=== PATIENT | female | born 1960 | race Hispanic/Latino ===

== ENCOUNTER 2017-10-06 14:55 | Emergency (ER) | payer BC ==
[2017-10-06 15:09] VITALS: RESP 18; TEMP 98.5
[2017-10-06] MEDS ORDERED: Magnesium Sulfate 2 GM in Sodium Chloride 0.9% 100 ML IVPB ONE (15:15)
[2017-10-06 15:32] VITALS: BMI 33.9
[2017-10-06] MEDS: Albuterol-Ipratrop 3 mg / 0.5 (3 ml) UD IH SCH (16:04)
--- NOTE | 2017-10-06 16:05 | RAD ---
HISTORY: cough r/o infiltrate COMPARISON: No prior. FINDINGS: LUNGS: No active pulmonary disease. PLEURA: No significant pleural effusion identified, no pneumothorax apparent. CARDIOVASCULAR: Normal. OSSEOUS STRUCTURES: No significant abnormalities. VISUALIZED UPPER ABDOMEN: Normal. OTHER FINDINGS: None. IMPRESSION: No active disease.
[2017-10-06 16:09] LABS: BASO # 0.06 K/mm3 (0.0-2.0); BASO % 0.7 % (0.0-3.0); EOS # 0.8 (0.0-0.7); EOS % 8.4 % (1.5-5.0); GRAN # 4.78 (1.4-6.5); GRAN % 53.1 % (50.0-68.0); HEMATOCRIT 41.4 % (36.0-48.0); LYMPH # 2.7 (1.2-3.4); LYMPH % 30.4 % (22.0-35.0); MEAN CELL VOLUME 90.4 fl (80.0-105.0); MEAN CORPUSCULAR HGB CONC 34.3 g/dl (31.0-37.0); MONO # 0.7 (0.1-0.6); MONO % 7.4 % (1.0-6.0); RED CELL DISTRIBUTION WIDTH 13.8 % (11.5-14.5)
[2017-10-06 16:51] LABS: TROPONIN I < 0.01 ng/mL
[2017-10-06 16:52] LABS: ALB/GLOB RATIO 1.2 (1.1-1.8); ALKALINE PHOSPHATASE 88 U/L (38-126); ALT/SGPT 62 U/L (7-56); AST/SGOT 44 U/L (14-36); BILIRUBIN,TOTAL 0.6 mg/dL (0.2-1.3); BLOOD UREA NITROGEN 15 mg/dL (7-21); CALCIUM 9.4 mg/dL (8.4-10.5); CARBON DIOXIDE 25 mmol/L (21-33); CHLORIDE 107 mmol/L (98-107); GFR AFRICAN-AMERICAN > 60; GLUCOSE,RANDOM 82 mg/dL (70-110); POTASSIUM 3.7 mmol/L (3.6-5.0); SODIUM 141 mmol/L (132-148); TOTAL PROTEIN 7.5 g/dL (5.8-8.3)
--- NOTE | 2017-10-06 17:31 | ED PDOC ---
Arrival/HPI - General Chief Complaint: Shortness Of Breath Time Seen by Provider: 10/06/17 15:13 Historian: Patient - History of Present Illness Narrative History of Present Illness (Text): 10/06/17 17:31 A 56 year old female, with a past medical history of asthma, presents to emergency department complaining of shortness of breath for two days. Patient notes associated dry cough. She states her symptoms feel like her typical asthma exacerbation. Patient used nebulizer treatments at home, which provided mild relief of her symptoms. Patient denies any fever, chills, nausea, vomiting , diarrhea, abdominal pain, chest pain or any other complaints. Patient denies any recent travel. Time/Duration: Other (2 days) Symptom Course: Unchanged Quality: Other Context: Home Past Medical History - Provider Review Nursing Documentation Reviewed: Yes - Infectious Disease Hx of Infectious Diseases: None - Cardiac Hx Pacemaker: No - Pulmonary Hx Asthma: Yes - Neurological Hx Paralysis: No - Hematological/Oncological Hx Blood Transfusions: No - Musculoskeletal/Rheumatological Hx Musculoskeletal Disorders: No - Gastrointestinal Other/Comment: GASTRITIS - Psychiatric Hx Psychophysiologic Disorder: No Hx Emotional Abuse: No Hx Physical Abuse: No Hx Substance Use: No - Surgical History Hx Cholecystectomy: Yes - Anesthesia Hx Anesthesia: Yes Hx Anesthesia Reactions: No Hx Malignant Hyperthermia: No - Suicidal Assessment Feels Threatened In Home Enviroment: No Family/Social History - Physician Review Nursing Documentation Reviewed: Yes Family/Social History: No Known Family HX Smoking Status: Never Smoked Hx Alcohol Use: Yes (SOCIAL) Frequency of alcohol use: Socially Hx Substance Use: No Allergies/Home Meds Allergies/Adverse Reactions: Allergies lactose Adverse Reaction (Uncoded 01/11/16 15:49) VOMITING Home Medications: Home Meds Medication Instructions Recorded Confirmed Omeprazole 40 mg PO DAILY 10/26/14 11/03/14 Review of Systems - Physician Review All systems were reviewed & negative as marked: Yes - Review of Systems Constitutional: absent: Fevers, Night Sweats Respiratory: SOB, Cough (dry cough) Cardiovascular: absent: Chest Pain Gastrointestinal: absent: Abdominal Pain, Diarrhea, Nausea, Vomiting Physical Exam Vital Signs Reviewed: Yes Vital Signs Temp Pulse Resp BP Pulse Ox 10/06/17 17:00 68 18 151/77 H 96 10/06/17 15:16 18 98 10/06/17 15:09 98.5 F 70 18 183/101 H 95 Temperature: Afebrile Blood Pressure: Hypertensive Pulse: Regular Respiratory Rate: Normal Appearance: Positive for: Well-Appearing, Non-Toxic, Comfortable Pain Distress: None Mental Status: Positive for: Alert and Oriented X 3 - Systems Exam Head: Present: Atraumatic, Normocephalic Pupils: Present: PERRL Extroacular Muscles: Present: EOMI Conjunctiva: Present: Normal Mouth: Present: Moist Mucous Membranes Pharnyx: Present: Normal. No: ERYTHEMA, EXUDATE, TONSILS ENLARGED Neck: Present: Normal Range of Motion Respiratory/Chest: Present: Good Air Exchange, Wheezes (Bilateral expiratory wheezing). No: Respiratory Distress, Accessory Muscle Use Cardiovascular: Present: Regular Rate and Rhythm, Normal S1, S2. No: Murmurs Abdomen: Present: Normal Bowel Sounds. No: Tenderness, Distention, Peritoneal Signs Upper Extremity: Present: Normal Inspection. No: Cyanosis, Edema Lower Extremity: Present: Normal Inspection. No: Edema Neurological: Present: GCS=15, CN II-XII Intact, Speech Normal Skin: Present: Warm, Dry, Normal Color. No: Rashes Psychiatric: Present: Alert, Oriented x 3, Normal Insight, Normal Concentration Medical Decision Making ED Course and Treatment: 10/06/17 17:41 Impression: A 56 year old female with shortness of breath and dry cough Plan: -- Chest xray -- EKG -- Labs -- Influenza A B -- Magnesium Sulfate, Solumedrol and Duoneb -- Reassess and disposition Progress Notes: EKG shows NSR at 63 BPM with normal intervals, normal axis. Interpreted by me. 10/06/17 17:26 On re-evaluation, patient states she feels better. Awaiting flu swab results. Report Date : 10/06/2017 16:04:24 Procedure: Chest xray Dictator : Juan R Ross MD IMPRESSION: No active disease. - Lab Interpretations Lab Results: 10/06/17 16:00 10/06/17 16:00 Lab Results 10/06/17 17:20: Influenza Typ A,B (EIA) Negative for flu a/b 10/06/17 16:00: Sodium 141, Potassium 3.7, Chloride 107, Carbon Dioxide 25, Anion Gap 13, BUN 15, Creatinine 0.7, Est GFR ( Amer) > 60, Est GFR (Non- Af Amer) > 60, Random Glucose 82, Calcium 9.4, Total Bilirubin 0.6, AST 44 H, ALT 62 H, Alkaline Phosphatase 88, Lactate Dehydrogenase 734 H, Total Creatine Kinase 444 H, CK-MB (CK-2) 10.1 H, CK-MB (CK-2) % 2.3 L, Troponin I < 0.01, Total Protein 7.5, Albumin 4.1, Globulin 3.4, Albumin/Globulin Ratio 1.2 10/06/17 16:00: WBC 9.0, RBC 4.58, Hgb 14.2, Hct 41.4, MCV 90.4, MCH 31.0, MCHC 34.3, RDW 13.8, Plt Count 216, MPV 11.0, Gran % 53.1, Lymph % (Auto) 30.4, [place] % (Auto) 7.4 H, Eos % (Auto) 8.4 H, Baso % (Auto) 0.7, Gran # 4.78, Lymph # 2.7 , [place] # 0.7 H, Eos # 0.8 H, Baso # 0.06 I have reviewed the lab results: Yes - RAD Interpretation Radiology Orders: 10/06/17 15:14 CHEST PORTABLE [RAD] Stat - Medication Orders Current Medication Orders: Discontinued Medications Albuterol/Ipratropium (Duoneb 3 Mg/0.5 Mg (3 Ml) Ud) 3 ml IH Q15M ALEC Stop: 10/06/17 15:46 Last Admin: 10/06/17 16:04 Dose: 3 ml Magnesium Sulfate 2 gm/ Sodium (Chloride) 104 mls @ 102 mls/hr IVPB ONCE ONE Stop: 10/06/17 16:16 Last Admin: 10/06/17 16:04 Dose: 102 mls/hr eMAR Start Stop Document 10/06/17 16:04 EQ (Rec: 10/06/17 16:04 EQ [facility] [id number][place] Intravenous Solution Start Date 10/06/17 Start Time 16:04 Methylprednisolone (Solu-Medrol) 125 mg IVP STAT STA Stop: 10/06/17 15:14 Last Admin: 10/06/17 16:04 Dose: 125 mg IVP Administration Document 10/06/17 16:04 EQ (Rec: 10/06/17 16:04 EQ [facility] [id number]) Charges for Administration # of IVP Administrations 1 - Scribe Statement The provider has reviewed the documentation as recorded by the Ángelibe Daylin Gavin training under Loly Thomas Provider Scribe Attestation: All medical record entries made by the Scribe were at my direction and personally dictated by me. I have reviewed the chart and agree that the record accurately reflects my personal performance of the history, physical exam, medical decision making, and the department course for this patient. I have also personally directed, reviewed, and agree with the discharge instructions and disposition. Disposition/Present on Arrival - Present on Arrival Any Indicators Present on Arrival: No History of DVT/PE: No History of Uncontrolled Diabetes: No Urinary Catheter: No History of Decub. Ulcer: No History Surgical Site Infection Following: None - Disposition Have Diagnosis and Disposition been Completed?: Yes Diagnosis: Asthma attack Disposition: HOME/ ROUTINE Disposition Time: 18:20 Patient Problems: Current Active Problems Problem Status Onset Asthma attack Acute Condition: IMPROVED Discharge Instructions (ExitCare): Asthma (ED) Additional Instructions: Thank you for letting us take care of you today. The emergency medical care you received today was directed at your acute symptoms. If you were prescribed any medication, please fill it and take as directed. It may take several days for your symptoms to resolve. Return to the Emergency Department if your symptoms worsen, do not improve, or if you have any other problems. Please contact your doctor or call one of the physicians/clinics you have been referred to that are listed on the Patient Visit Information form that is included in your discharge packet. Bring any paperwork you were given at discharge with you along with any medications you are taking to your follow up visit. Our treatment cannot replace ongoing medical care by a primary care provider (PCP) outside of the emergency department. Thank you for allowing the [facility] team to be part of your care today. Follow up with your doctor in 1-2 days for re-evaluation and further management. Prescriptions: predniSONE [Prednisone] 40 mg PO DAILY #10 tab Referrals: Delores Bonilla MD [Primary Care Provider] - Follow up with primary Forms: [employer] ([place])
[2017-10-06 18:30] VITALS: BP 148/71; PULSE 64; O2SAT 98
--- NOTE | 2017-10-06 23:12 | CARD ---
APPROVED REPORT EKG Measurement Heart [id number] <Conclusion> Normal sinus rhythm Low voltage QRS Septal infarct, age undetermined Abnormal ECG
== END 2017-10-06 18:40 | disposition home or self-care (01) ==
LOC: ED 14:55
DX: J45.909 Unspecified asthma, uncomplicated (principal)
CPT/HCPCS: 71010; 80053; 82550; 82553; 83615; 84484; 85025; 87804; 93005; 96374; 99284; J2930; J3475